=== PATIENT | male | born 1970 | race Two or more races ===

== ENCOUNTER 2016-05-09 11:23 | Emergency (ER) | payer BC, OTHER ==
[2016-05-09 11:28] VITALS: TEMP 98.2; BMI 32.3
--- NOTE | 2016-05-09 12:09 | PDOC ---
History of Present Illness - History of Present Illness Initial Comments: 05/09/16 13:23 Patient is a 46 year old male with significant medical hx of hemorrhoids, otherwise healthy, who is presenting to the ED with rectal pain and difficulty urinating for one week. The patient reports he's been having urgency to urinate with little outflow; he also reports some burning with urination. Patient reports he hasnt been able to have a bowel movement in the past four days. Denies fever, chills, or rectal bleeding. <Zeenat Nesbitt - Last Filed: 05/09/16 13:49> <Toni Adam - Last Filed: 05/09/16 18:19> - General Chief Complaint: Hemorrhoids Stated Complaint: PAIN, DIFFICULTY URINATING Past History <Zeenat Nesbitt - Last Filed: 05/09/16 13:49> - Psycho/Social/Smoking Cessation Hx Suicidal Ideation: No Smoking History: Never smoked Have you smoked in the past 12 months: No Information on smoking cessation initiated: No Hx Alcohol Use: No Drug/Substance Use Hx: No <Toni Adam - Last Filed: 05/09/16 18:19> - Past Medical History Allergies/Adverse Reactions: Allergies Allergy/AdvReac Type Severity Reaction Status Date / Time No Known Allergies Allergy Verified 05/09/16 11:25 Home Medications: Ambulatory Orders NK [No Known Home Medication] 05/09/16 Review of Systems - Review of Systems Comments:: 05/09/16 13:24 CONSTITUTIONAL: Absent: fever, chills, diaphoresis, generalized weakness, malaise, loss of appetite HEENT: Absent: rhinorrhea, nasal congestion, throat pain, throat swelling, difficulty swallowing, mouth swelling, ear pain, eye pain, visual changes CARDIOVASCULAR: Absent: chest pain, syncope, palpitations, irregular heart rate, lightheadedness , peripheral edema RESPIRATORY: Absent: cough, shortness of breath, dyspnea with exertion, orthopnea, wheezing, stridor, hemoptysis GASTROINTESTINAL: Present: rectal pain Absent: abdominal pain, abdominal distension, nausea, vomiting, diarrhea, constipation, melena, hematochezia GENITOURINARY: Present: urgency, hesitancy, dysuria Absent: frequency, hematuria, flank pain, genital pain MUSCULOSKELETAL: Absent: myalgia, arthralgia, joint swelling SKIN: Absent: rash, itching, pallor HEMATOLOGIC/IMMUNOLOGIC: Absent: easy bleeding, easy bruising, lymphadenopathy, frequent infections ENDOCRINE: Absent: unexplained weight gain, unexplained weight loss, heat intolerance, cold intolerance NEUROLOGIC: Absent: headache, focal weakness or paresthesia, dizziness, unsteady gait, seizure, mental status changes, bladder or bowel incontinence. PSYCHIATRIC: Absent: anxiety, depression, suicidal or homicidal ideation, hallucinations <Zeenat Nesbitt - Last Filed: 05/09/16 13:49> *Physical Exam - Vital Signs Last Vital Signs Temp Pulse Resp BP Pulse Ox 98.2 F 117 H 19 150/98 97 05/09/16 11:26 05/09/16 11:26 05/09/16 11:26 05/09/16 11:26 05/09/16 11:26 - Physical Exam Comments: 05/09/16 13:25 GENERAL: Well developed, well nourished. Awake and alert. No acute distress. HEENT: Normocephalic, atraumatic. PERRLA, EOMI. No conjunctival pallor. Sclera are non- icteric. Moist mucous membranes. Oropharynx is clear. NECK: Supple. Full ROM. No JVD. Carotid pulses 2+ and symmetric, without bruits. No thyromegaly. No lymphadenopathy. CARDIOVASCULAR: Regular rate and rhythm. No murmurs, rubs, or gallops. Distal pulses are 2+ and symmetric. PULMONARY: No evidence of respiratory distress. Lungs clear to auscultation bilaterally. No wheezing, rales or rhonchi. ABDOMINAL: Soft. Suprapubic tenderness. Non-distended. No rebound or guarding. No organomegaly. Normoactive bowel sounds. MUSCULOSKELETAL: Normal range of motion at all joints. No bony deformities or tenderness. No CVA tenderness. EXTREMITIES: No cyanosis. No clubbing. No edema. No calf tenderness. SKIN: Warm and dry. Normal capillary refill. No rashes. No jaundice. NEUROLOGICAL: Alert, awake, appropriate. Cranial nerves 2-12 intact. Normal speech. Gait is normal without ataxia. PSYCHIATRIC: Cooperative. Good eye contact. Appropriate mood and affect. RECTAL: 7 o'clock - 9 o;clock swelling, redness, and tenderness that is fluctuant but not pointing, no palpable hemorrhoids. <Zeenat Nesbitt - Last Filed: 05/09/16 13:49> - Vital Signs Last Vital Signs Temp Pulse Resp BP Pulse Ox 98.2 F 117 H 19 150/98 97 05/09/16 11:26 05/09/16 11:26 05/09/16 11:26 05/09/16 11:26 05/09/16 11:26 <Toni Adam - Last Filed: 05/09/16 18:19> ED Treatment Course - LABORATORY CBC & Chemistry Diagram: 05/09/16 12:40 05/09/16 12:40 - ADDITIONAL ORDERS Additional order review: Laboratory Results 05/09/16 05/09/16 12:40 12:40 INR 1.14 PTT (Actin FS) 35.2 H Sodium 141 Potassium 4.6 Chloride 101 Carbon Dioxide 28 Anion Gap 12 BUN 13 Creatinine 0.8 Creat Clearance w eGFR > 60 Random Glucose 224 H Calcium 9.4 Total Bilirubin 0.6 AST 50 H ALT 73 Alkaline Phosphatase 84 Total Protein 8.0 Albumin 4.3 05/09/16 12:40 RBC 5.45 MCV 82.5 MCHC 34.2 RDW 13.4 MPV 9.6 Neutrophils % 68.3 Lymphocytes % 21.7 Monocytes % 7.9 Eosinophils % 1.7 Basophils % 0.4 - RADIOLOGY Radiograph Interpretation: 05/09/16 13:50 Soft tissue US Impression: Right perianal hypoechoic complex masslike lesion compatible with the clinical history of a perirectal abscess. Reported By: Lala William MD - Medications Given in the ED: ED Medications Discontinued Medications Generic Name Dose Route Start Last Admin Trade Name Lily PRN Reason Stop Dose Admin Lidocaine HCl 5 applic 05/09/16 12:24 05/09/16 12:41 Xylocaine 2% Jelly TP 05/09/16 12:25 5 applic ONCE ONE Administration <Zeenat Nesbitt - Last Filed: 05/09/16 13:49> - LABORATORY CBC & Chemistry Diagram: 05/09/16 12:40 05/09/16 12:40 <Toni Adam - Last Filed: 05/09/16 18:19> *DC/Admit/Observation/Transfer - Attestations Scribe Attestion: 05/09/16 13:27 Documentation prepared by Zeenat Nesbitt, acting as emergency medical tech for Toni Adam MD. <Zeenat Nesbitt - Last Filed: 05/09/16 13:49> - Discharge Dispostion Admit: No <Toni Adam - Last Filed: 05/09/16 18:19> Diagnosis at time of Disposition: Perirectal abscess - Discharge Dispostion Disposition: HOME Condition at time of disposition: Improved - Referrals Referrals: Pablo Evangelista MD [Primary Care Provider] -
[2016-05-09] MEDS ORDERED: LIDOCAINE HCL 2% JELLY (30 ML/TUBE) TP ONE (12:24)
[2016-05-09] MEDS ORDERED: LIDOCAINE HCL 2% JELLY (5 ML/TUBE) ONE ×2 (12:46→12:56)
[2016-05-09 12:49] LABS: BASOPHIL 0.4 % (0-2.0); EOSINOPHIL 1.7 % (0-4.5); MCH 28.2 pg (25.7-33.7); MCHC 34.2 g/dl (32.0-35.9); MEAN CELL VOLUME 82.5 fl (80-96); MEAN PLT VOLUME 9.6 fl (7.5-11.1); NEUTROPHILS 68.3 % (42.8-82.8); PLATELET COUNT 196 K/MM3 (134-434); RDW 13.4 % (11.9-15.9); WHITE BLOOD COUNT 6.7 K/mm3 (4.0-10.0)
[2016-05-09 13:01] LABS: INR 1.14 (0.82-1.09); PROTHROMBIN TIME (PATIENT) 12.6 SEC (9.98-11.88)
[2016-05-09 13:03] LABS: ACTIVATED PTT 35.2 SECONDS (26.9-34.4)
[2016-05-09 13:13] LABS: ALBUMIN 4.3 g/dl (3.4-5.0); ANION GAP 12 (8-16); CALCIUM 9.4 mg/dL (8.5-10.1); CO2 28 mmol/L (21-32); CREATININE 0.8 mg/dL (0.7-1.3); GLUCOSE,RANDOM 224 mg/dL (74-106); SGOT/AST 50 U/L (15-37); SGPT/ALT 73 U/L (12-78)
[2016-05-09 13:15] LABS: ALK PHOS 84 U/L (45-117); BILIRUBIN,TOTAL 0.6 mg/dL (0.2-1.0)
[2016-05-09] MEDS ORDERED: SODIUM CHLORIDE 1,000 ML IV STA (14:25)
[2016-05-09] MEDS ORDERED: KETOROLAC TROMETHAMINE 30 MG/1 ML VIAL ONE (14:44)
[2016-05-09] MEDS ORDERED: KETOROLAC TROMETHAMINE 30 MG/1 ML VIAL IVPUSH ONE (14:54)
[2016-05-09] MEDS ORDERED: MIDAZOLAM HCL 2 MG/2 ML SINGLE DOSE VIAL ONE (16:56)
[2016-05-09] MEDS ORDERED: LIDOCAINE HCL 2% (20ML MULTI-DOSE VIAL) NR ONE (16:56)
[2016-05-09] MEDS ORDERED: LIDOCAINE HCL/PF 1% SDV 5ML VIAL ONE (16:57)
--- NOTE | 2016-05-09 17:47 | CONSULT ---
Consult Consult Specialty:: colorectal surgery Reason for Consultation:: perirectal pain - History of Present Illness Chief Complaint: perirectal pain x 3-4 days History of Present Illness: pt is a 46M with worsening perirectal pain since (3 days ago). pain is getting worse. he says he has hx of burst hemorrhoids. limited exam due to pain. no leukocytosis. no fever/chils. - History Source History Provided By: Patient Limitations to Obtaining History: No Limitations - Alcohol/Substance Use Hx Alcohol Use: No - Smoking History Smoking history: Never smoked Have you smoked in the past 12 months: No Home Medications - Allergies Allergies/Adverse Reactions: Allergies Allergy/AdvReac Type Severity Reaction Status Date / Time No Known Allergies Allergy Verified 05/09/16 11:25 - Home Medications Home Medications: Ambulatory Orders NK [No Known Home Medication] 05/09/16 Review of Systems - Review of Systems Constitutional: denies: Chills, Fever Eyes: denies: Blind Spots, Blurred Vision, Recent Change in Vision HENT: denies: Difficult Swallowing, Ear Discharge Neck: denies: Decreased ROM, Lumps Cardiovascular: denies: Chest Pain, Edema Respiratory: denies: Cough, Exercise Intolerance Gastrointestinal: reports: Constipation Genitourinary: reports: Dysuria Breasts: denies: Pain, Skin Changes Musculoskeletal: denies: Back Pain, Crepitus Integumentary: denies: Blister, Bruising Neurological: denies: Change in Speech, Numbness Endocrine: denies: Excessive Sweating, Flushing Hematology/Lymphatic: denies: Easily Bruised, Excessive Bleeding Psychiatric: denies: Altered Sleep Pattern, Anxiety Physical Exam Vital Signs: Vital Signs Temperature 98.2 F 05/09/16 11:26 Pulse Rate 97 H 05/09/16 17:36 Respiratory Rate 20 05/09/16 17:36 Blood Pressure 120/85 05/09/16 17:36 O2 Sat by Pulse Oximetry (%) 100 05/09/16 17:36 Constitutional: Yes: No Distress, Calm Eyes: Yes: Conjunctiva Clear, EOM Intact HENT: Yes: Normocephalic Neck: Yes: Supple, Trachea Midline Cardiovascular: Yes: Regular Rate and Rhythm Respiratory: Yes: Regular Gastrointestinal: Yes: Soft. No: Distention, Tenderness ...Rectal Exam: Yes: Other (examined patient in left lateral decubitus position. some swelling L posterior and tender/fluctuance.) Renal/: No: CVA Tenderness - Left, CVA Tenderness - Right Breast(s): No: Discharge from Nipple, Nipple Inversion Musculoskeletal: No: Joint Stiffness, Joint Swelling Extremities: No: Calf Tenderness, Erythema Integumentary: No: Erythema, Rash Neurological: Yes: Alert, Oriented Psychiatric: Yes: Alert, Oriented Labs: CBC, BMP 05/09/16 12:40 05/09/16 12:40 Imaging - Results Ultrasound: Report Reviewed Problem List - Problems (1) Perirectal abscess Assessment/Plan: for incision and drainage under conscious sedation here in ER counseled pt at length about risk of fistula/recurrence he understands and wishes to proceed. Code(s): K61.1 - RECTAL ABSCESS (2) Diabetes mellitus Code(s): E11.9 - TYPE 2 DIABETES MELLITUS WITHOUT COMPLICATIONS
--- NOTE | 2016-05-09 17:48 | OP ---
Operative Note - Note: Operative Date: 05/09/16 Pre-Operative Diagnosis: desi-rectal abscess Operation: incision and drainage of perirectal abscess Findings: perirectal abscess Post-Operative Diagnosis: Same as Pre-op Surgeon: Afshin Mccray Anesthesia: Local, MAC Estimated Blood Loss (mls): 20 Operative Report Dictated: Yes
[2016-05-09 18:37] VITALS: BP 118/89; PULSE 78
--- NOTE | 2016-05-10 00:02 | OP ---
DATE OF OPERATION: 05/09/2016 PROCEDURE: Incision and drainage of a perirectal abscess. PREOPERATIVE DIAGNOSIS: Perirectal abscess. POSTOPERATIVE DIAGNOSIS: Perirectal abscess. SURGEON: Afshin Mccray M.D. ANESTHESIA: Administered by Afshin Mccray M.D., it was conscious sedation. Administered 4 mg of Versed and 100 mg of fentanyl as well as 15 mL of 1% lidocaine. ESTIMATED BLOOD LOSS: 20 mL. FINDINGS: There was a large amount of pus approximately 30 mL worth of purulent material. OPERATIVE NOTE IN DETAIL: Patient was placed in a monitored room in the emergency room and a timeout was then performed, and then he was prepped and draped in usual sterile fashion after consent was obtained. He was in left lateral decubitus position, and at this point we administered 2 mg of Versed and then 50 mcg of fentanyl. I then injected approximately 5 mL of lidocaine in a subcutaneous wheel in the left posterior position over fluctuant mass, and I made an incision. However, there was only bloody drainage, and this was suspected to be his chronically swollen hemorrhoid. At this point, I converted to cruciate incision, and explored this wound, and I was not able to find any purulence. I then used an 18-gauge blunt needle and then I placed in the posterior midline where the patient said he has his pain, and then on aspiration I was able to aspirate out some pus. I then gave him 10 mL of lidocaine in the posterior midline position and then gave him 2 mg Versed more, and then another 15 mcg of fentanyl. At this point I made an incision in the posterior midline and then a copious amount of purulent fluid was drained. I then placed a clamp inside and enlarged the hole, and even more pus was drained. I then converted it to a cruciate type incision and then cut off some of the corners, so that the wound would stay open and drain properly. I explored the wound was Q-Tips multiple times, and it was felt to be adequately drained. I then did a digital rectal exam, pushed on his rectum from the posterior midline and no more pus was expressed. There is a question in my mind whether or not he had an internal opening that was palpable; however, given his pain, and the fact that we would not do a fistulotomy, this is just for further consideration. I then applied pressure dressing to the area and secured it with adhesive dressing. I then gave him postoperative instructions to the patient's brother, and instructed the emergency room to discharge the patient with a couple of Percocet and 5 days of antibiotics, given his diabetic history. He is to follow up with me in 3 days for a postoperative visit. AFSHIN MCCRAY M.D. ÁNGEL/[id number]
== END 2016-05-09 18:37 | disposition home or self-care (01) ==
LOC: JER 11:23
PROC: 0D9P3ZZ Drainage of Rectum, Percutaneous Approach (ICD-10-PCS; principal; 2016-05-09)
PROC: 3E0337Z Introduction of Electrolytic and Water Balance Substance into Peripheral Vein, Percutaneous Approach (ICD-10-PCS; 2016-05-09)
PROC: 3E0333Z Introduction of Anti-inflammatory into Peripheral Vein, Percutaneous Approach (ICD-10-PCS; 2016-05-09)
DX: K61.1 Rectal abscess (principal); E11.9 Type 2 diabetes mellitus without complications
CPT/HCPCS: 36415; 76882; 80053; 85025; 85610; 85730; 99283-25